=== PATIENT | female | born 1995 | race Caucasian/White ===

== ENCOUNTER 2017-12-25 11:28 | Emergency (ER) | payer OTHER ==
[2017-12-25 14:21] VITALS: BP 101/60
--- NOTE | 2017-12-25 15:06 | UC ---
Emil Sierra Stephanie, scribed for Roni Mcintosh MD on 12/25/17 at 1456 . General HPI - HPI Summary HPI Summary: The pt is a 22 y/o F presenting to with c/o vomiting that occured yesterday. The pt reports symptoms that have been occurring for 2 weeks and have worsened in the past few days. Symptoms include sore throat, nasal congestion, rhinorrhea with yellow mucus, nausea, sinus pressure, dry cough, room-spinning dizziness, lightheadedness, OLIVO and chills. - History of Current Complaint Chief Complaint: UCGeneralIllness Stated Complaint: RESP ISSUE Time Seen by Provider: 12/25/17 14:40 Hx Obtained From: Patient Hx Last Menstrual Period: 12/01/17 Onset/Duration: Gradual Onset, Lasting Weeks - 2, Still Present Timing: Constant Current Severity: Mild Pain Intensity: 6 Associated Signs & Symptoms: Positive: Cough, Dizziness, Headache, Nausea, Vomiting - Allergy/Home Medications Home Medications: Home Medications ALPRAZolam [Xanax] 0.25 mg PO SEE INSTRUCTIONS 12/25/17 [History Confirmed 12/25] Bupropion XL (NF) [Wellbutrin XL (NF)] 300 mg PO DAILY 12/25/17 [History Confirmed 12/25/17] Dextroamphetamine/Amphetamine [Adderall 10 mg Tablet] 10 mg PO WEEKLY 12/25/17 [ History Confirmed 12/25/17] Escitalopram Oxalate [Lexapro 20 mg] 20 mg PO DAILY 12/25/17 [History Confirmed 12/25/17] PMH/Surg Hx/FS Hx/Imm Hx Previously Healthy: Yes - The pt denies any past medical hx. - Surgical History Surgical History: Yes Surgery Procedure, Year, and Place: 2007 bilateral sesmoid. 2010 left wrist reconstruction. 2013 wisdom out - Family History Known Family History: Positive: Cardiac Disease, Diabetes, Other - aortic aneurysms, lung cancer Negative: Hypertension - Social History Occupation: Student Lives: Dormitory/Roommates Alcohol Use: Daily Substance Use Type: None Smoking Status (MU): Never Smoked Tobacco Review of Systems Constitutional: Chills Skin: Negative Eyes: Negative ENT: Sore Throat, Nasal Discharge, Sinus Congestion, Sinus Pain/Tenderness Respiratory: Cough Cardiovascular: Negative Gastrointestinal: Vomiting, Nausea Genitourinary: Negative Motor: Negative Neurovascular: Negative Musculoskeletal: Negative Neurological: Headache Psychological: Negative All Other Systems Reviewed And Are Negative: Yes Physical Exam Triage Information Reviewed: Yes Vital Signs: Initial Vital Signs Temp 98.2 F 12/25/17 14:15 Pulse 84 12/25/17 14:15 Resp 16 12/25/17 14:15 BP 101/60 12/25/17 14:15 Pulse Ox 97 12/25/17 14:15 Vital Signs Reviewed: Yes - Additional Comments General: well-appearing, no pain distress Skin: warm, color reflects adequate perfusion, dry Head: normal Eyes: EOMI, JUDIT ENT: rhinorrhea, mild posterior pharynx erythema Neck: supple, nontender Respiratory: CTA, breath sounds present Cardiovascular: RRR Abdomen: soft, nontender Bowel: present Musculoskeletal: normal, strength/ROM intact Neurological: normal, sensory/motor intact, A&O x3 Psychological: affect/mood appropriate Course/Dx - Course Course Of Treatment: Medications reviewed. - Differential Dx - Multi-Symptom Provider Diagnoses: SINUSITIS Discharge - Discharge Plan Condition: Stable Disposition: HOME Prescriptions: Amoxicillin/Clavulanate TAB* [Augmentin TAB 875*] 875 mg PO BID #20 tab Fluconazole [Diflucan 150 MG (NF)] 150 mg PO ONCE #1 tab Patient Education Materials: Sinusitis (ED) Referrals: [facility] - Dharmesh MOSQUEDA [Primary Care Provider] - 2 Days Additional Instructions: FOLLOW UP WITH YOUR DOCTOR. GET RECHECKED FOR ANY WORSENING OF YOUR CONDITION OR QUESTIONS OR CONCERNS. The documentation as recorded by the Emil recinos Stephanie accurately reflects the service I personally performed and the decisions made by me, Roni Mcintosh MD.
== END 2017-12-25 15:07 | disposition home or self-care (01) ==
LOC: UCEAST 11:28
DX: J32.9 Chronic sinusitis, unspecified (principal)
CPT/HCPCS: 99212; G0463